=== PATIENT | female | born 1965 | race Two or more races ===

== ENCOUNTER 2017-03-19 20:14 | Emergency (ER) | payer MEDICAID ==
[~2017-03-19] VITALS: Ht 157.5 cm; Wt 58.4 kg
[2017-03-19] MEDS ORDERED: KETOROLAC 30MG/ML VIAL IV STA (23:43)
[2017-03-19] MEDS ORDERED: SODIUM CHLORIDE 0.9% 1,000 ML IV ONE (23:43)
[2017-03-20 00:01] LABS: BASOPHILS % 0.3 % (0.0-2.0); EOSINOPHILS % 1.7 % (0.0-5.0); HEMOGLOBIN. 13.1 g/dL (12.0-16.0); LYMPHOCYTES % 28.1 % (20.0-50.0); MEAN CORPUSCULAR HEMOGLOBIN 29.5 pg (28.0-32.0); MEAN CORPUSCULAR VOLUME 88.3 fL (81.0-99.0); MEAN PLATELET VOLUME 9.3 fl (7.4-10.4); MONOCYTES % 7.9 % (2.0-8.0); PLATELET 178 x1000/uL (130-400); RED BLOOD CELL COUNT 4.42 mill/uL (4.2-5.4)
[2017-03-20 00:03] LABS: CHLORIDE 105 mEq/L (98-107)
[2017-03-20 00:05] LABS: INR 1.1; PROTHROMBIN TIME 11.4 sec (9.4-11.6)
[2017-03-20 00:17] LABS: CLARITY URINE CLOUDY (CLEAR); COLOR URINE YELLOW (YELLOW); KETONES URINE NEGATIVE (NEGATIVE); LEUKOCYTE ESTERASE URINE 3+ (NEGATIVE); NITRITE URINE POSITIVE (NEGATIVE); OCCULT BLOOD URINE NEGATIVE (NEGATIVE); PH URINE 6.5 (4.5-8.0); PROTEIN URINE NEGATIVE (NEGATIVE); SPECIFIC GRAVITY URINE 1.015 (1.005-1.030); UROBILINOGEN URINE 0.2 E.U./dL (0.2-1.0)
[2017-03-20 01:35] VITALS: BP 144/88
== END 2017-03-20 02:00 | disposition home or self-care (01) ==
LOC: ER 21:46
DX: N39.0 Urinary tract infection, site not specified (principal); I10 Essential (primary) hypertension; R73.03 Prediabetes; Z91.14 Patient's other noncompliance with medication regimen
CPT/HCPCS: 36415; 80053; 81001; 83690; 85025; 85610; 87077; 87086; 87186; 96361; 96374; 99284; J1885; J7030